=== PATIENT | female | born 1950 | race Caucasian/White ===

== ENCOUNTER → 2016-08-25 | Outpatient (CLI) | payer MEDICARE, BC ==
[~2016-08-25] MED LIST: ALENDRONATE SOD70 MG PO; AMLODIPINE BESYL5 MG PO; AVAPRO PO; ENBREL50 MG/M1 SQ; ENBREL50 MG/ML PO; FISH OIL 1,0001 CAP PO; FOLIC ACID800 MCG PO; GLUCOSAMINE; GLUCOSAMINE S1000 M3 PO; GLYBURIDE-METFO1 TA3 PO; IRBESARTAN300 MG PO; METAGLIP 5/5001 TAB PO; METFORMIN/GLYBURIDE; MULTIPLE VITAMI1 T11 PO; NORVASC PO; OYSTER CALCIUM500 MG PO; VITAMIN D50000 UNIT PO; VYTORIN 10-20 T1 TAB PO; VYTORIN PO
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
[2016-08-25 12:41] LABS: POC - GFR >60.0 mL/min (>60)
== END | disposition home or self-care (01) ==
LOC: SCT 11:56
PROVIDERS: Internal Medicine Hematology
DX: R59.0 Localized enlarged lymph nodes (principal); E04.2 Nontoxic multinodular goiter; M47.812 Spondylosis without myelopathy or radiculopathy, cervical region; M48.02 Spinal stenosis, cervical region
CPT/HCPCS: 70491; 74177; 82565; Q9967

== ENCOUNTER → 2016-08-26 | Outpatient (CLI) | payer MEDICARE, BC ==
--- NOTE | ~2016-08-26 | ST ---
Unit #: [id number] #: [id number] Patient: NEAL JEREZ [id number] [address] [place], [place] [address] [id number] O MR#: [id number] NAME: NEAL JEREZ. : 1950 SEX: F STUDY DATE/TIME: 08/27/2016 UNIT: [facility] ROOM: STUDY DESCRIPTION: ECG and nuclear study Attending Physician: Gil Boss M.D. Referring Physician: Gil Boss M.D. Primary Care Physician: Carolyn Girard M.D. CARDIOLOGY REPORT EXAM Stress nuclear and ECG combined. INDICATIONS Preoperative assessment, thumb surgery, unable to exercise adequately. SUMMARY The patient received Lexiscan intravenously while at rest, as well as technetium 99m Cardiolite, 12 mCi and 31.4 mCi, at rest and stress respectively. Appropriate views were obtained. FINDINGS The rest and stress ECG showed no diagnostic ST shifts. There were no significant dysrhythmias, no heart block, and there was no chest pain. There was mild shortness of breath noted. The heart rate increased from 95 to 129, and blood pressure decreased from 177/95 to 160/85. Perfusion images demonstrate intestinal artifact at rest, less with stress. Otherwise, perfusion is normal and equivalent between rest and stress. Apical thinning is noted. Planar images showed no significant patient motion either at rest or stress. There is no significant lung uptake, LV or RV enlargement. Summed stress score is 4. Summed difference score is 3, primarily involving the border detection at the base. Gated perfusion and wall motion analysis demonstrates end diastolic volume 62 mL. Ejection fraction 67% with no wall motion abnormality seen. IMPRESSION 1. Myocardial perfusion scan show no ischemia or infarction. 2. Normal wall motion with excellent ejection fraction. 3. Based on this study, the patient would be considered at low preoperative risk for cardiac event during noncardiac surgery. Dictated by... Gil Boss M.D. RNEEE/néstor TD: 08/30/2016 09:46 JOB #: [id number] Unit #: [id number] #: [id number] Patient: NEAL JEREZ CARDIOLOGY REPORT X Gil Boss MD CARDIOLOGY REPORT
== END | disposition home or self-care (01) ==
LOC: CNUC 07:30
DX: R94.31 Abnormal electrocardiogram [ECG] [EKG] (principal)
CPT/HCPCS: 78452; 93017; 93306; A9500; J2785

== ENCOUNTER → 2017-01-05 | Outpatient (CLI) | payer MEDICARE, BC ==
--- NOTE | ~2017-01-05 | US128 ---
[id number] [address] [address] [id number] O MR#: [id number] Acc #: [id number] NAME: NEAL JEREZ : 1950 SEX: F STUDY DATE/TIME: 01/05/2017 11:17 UNIT: [facility] ROOM: STUDY DESCRIPTION: US Thyroid Attending Physician: Katey Bowers A.P.R.N. Referring Physician: Katey Bowers A.P.R.N. Ordering Physician: Katey Bowers A.P.R.N. Primary Care Physician: Carolyn Girard M.D. MEDICAL IMAGING REPORT This report is preliminary unless electronic signature is present. EXAM Thyroid ultrasound. INDICATIONS Bilateral thyroid nodules. These were previously seen on a thyroid ultrasound from August 02, 2016. This is a followup study. TECHNIQUE Hickey-scale and color Doppler sonographic images were obtained through the thyroid gland. FINDINGS Right lobe of the thyroid gland measures 1.5 x 1.4 x 4.1 cm, left lobe measures 1.5 x 1.7 cm in transverse dimensions. Sagittal measurements were not obtained. There is probable cyst identified within the right lobe of thyroid gland measuring 4 x 4 x 6 mm. It is not significantly changed when compared to the earlier study from July 2016. There is a predominantly cystic nodule seen straddling the isthmus measuring 0.9 x 1.0 x 1.0 cm. Again, this is probably not significantly changed when allowance is made for differences in technique. There is a heterogeneous nodule within the left lobe measuring 7 x 4 x 8 mm which is also unchanged when compared to the prior examination, and there is a heterogeneous nodule seen within the midportion of the left lobe of the thyroid gland measuring 1.0 x 0.7 x 1.1 cm. I think given differences in technique, this is probably not significantly changed when compared to the August 02, 2016 examination. No new nodules are identified. There is also a hypoechoic nodule seen within the inferior pole of the left lobe of the thyroid gland which measures 4 x 5 x 6 mm unchanged when compared to prior study. IMPRESSION No significant interval change in the previously described thyroid nodules when allowance is made for differences in technique. Follow up ultrasound in 6 months is suggested to document continuing stability. Dictated by... Annette Klein M.D. THIS IS AN ELECTRONICALLY VERIFIED REPORT Annette Klein M.D. at 01/06/2017 5:07 PM ELIZABETH/estela TD: 01/06/2017 15:52 JOB #: [id number] MEDICAL IMAGING REPORT Page 1 of 1
== END | disposition home or self-care (01) ==
LOC: SGUS 11:13
DX: E04.2 Nontoxic multinodular goiter (principal)
CPT/HCPCS: 76536